=== PATIENT | female | born 1985 | race Two or more races ===

== ENCOUNTER 2020-06-26 19:16 | Emergency (ER) | payer MEDICAID ==
[2020-06-26] MEDS ORDERED: LORazepam 1 MG Tab PO ONE (19:42)
--- NOTE | 2020-06-26 19:53 | EDM.PDOCBH ---
ED HPI GENERAL MEDICAL PROBLEM - General Chief Complaint: Behavioral/Psych Stated Complaint: MENTAL HEALTH EVAL Time Seen by Provider: 06/26/20 19:39 Source of Information: Reports: Patient History Limitations: Reports: No Limitations - History of Present Illness INITIAL COMMENTS - FREE TEXT/NARRATIVE: HISTORY AND PHYSICAL: History of present illness: Patient is a 34-year-old female who presents to the emergency room with [facility] counselors for clearance for detox admission. Patient has a history of polysubstance abuse (marijuana, etoh, herion and meth). States she is volunt arily being admitted to [facility] for treatment. States she last drank alcohol and smoked marijuana last evening. She currently has no current complaints or concerns. Patient denies any fever, chills, headache, change in vision, syncope or near syncope. Denies any chest pain, back pain, shortness of breath or cough. Denies any GI or symptoms. No concern for . Patient has been eating and drinking appropriately. No thoughts of self-harm or harming others. Review of systems: As per history of present illness and below otherwise all systems reviewed and negative. Past medical history: As per history of present illness and as reviewed below otherwise noncontributory. Surgical history: As per history of present illness and as reviewed below otherwise noncont ributory. Social history: See social history for further information Family history: As per history of present illness and as reviewed below otherwise noncontributory. Physical exam: General: Well developed and well nourished. Alert and orientated x 3. Nontoxic in appearance and in no acute distress. Vital signs are stable and have been reviewed by me. Nursing notes were reviewed. HEENT: Atraumatic, normocephalic, pupils equal and reactive bilaterally, negative for conjunctival pallor or scleral icterus, mucous membranes moist, TMs normal bilaterally, throat clear, neck supple, nontender, trachea midline. No drooling or trismus noted. No meningeal signs. No hot potato voice noted. Lungs: Clear to auscultation bilaterally. No wheezes, rales, or rhonchi. Chest nontender. Normal work of breathing, no accessory muscles used. Heart: S1S2, regular rate and rhythm without overt murmur, gallops, or rubs. No JVD. No peripheral edema Abdomen: Soft, nondistended, nontender. Normoactive bowel sounds. Negative for masses or costovertebral tenderness. Skin: Intact, warm, dry. No lesions or rashes noted. Hematologic: No petechiae or purpra. Mucosa appropriate color and normal nail bed color and refill. Extremities: Atraumatic, moves all extremities per self without difficulty or deficits, negative for cords or calf pain. Neurovascular unremarkable. Neuro: Awake, alert, oriented. Cranial nerves II through XII unremarkable. Cerebellum unremarkable. Motor and sensory unremarkable throughout. Exam nonfocal. Psychiatric: Mood and affect are appropriate. Normal thought process. Answering questions appropriately. Notes: *This patient was seen and evaluated during the 2019 SARS-CoV-2 novel coronavirus pandemic period. Community viral transmission is ongoing at time of this encounter and the emergency department is operating under pandemic response procedures. Patient's physical exam is within normal limits. She offers no current complaints or concerns, mildly anxious about her [facility] experience. The [facility] would like basic lab work done at this time. Patient is agreeable. Lab work is essentially unremarkable. Patient is unable to give a urine sample, was asked many times. She states she does not have any urinary symptoms. Vital signs remained stable. She continues to be alert, oriented and unremarkable physical exam. I have talked with the patient about today's findings, in addition to providing specific details for plan of care. Reassessment at the time of disposition demonstrates that the patient is in no acute distress. The patient is stable for discharge, counseling was provided and we discussed in great detail signs and symptoms that would prompt them to return to the Emergency Department. Medication, follow up and supportive care measures were reviewed and discussed. Voices understanding and is agreeable to plan of care. Denies any further questions or concerns at this time. Diagnostics: CBC, CMP, UA Therapeutics: Ativan PO Prescription: None Impression: Encounter for medical screening exam Plan: 1. You were evaluated today on an emergent basis. Your lab work is unremarkable 2. You can alternate Tylenol and ibuprofen as needed for pain and fever management. 3. We encourage you to follow up with your primary care provider and/or recommended specialist in the next few days for re-evaluation and further care/management. 4. If your symptoms should worsen, new symptoms develop or any of the signs and symptoms we discussed should arise please return to the emergency room or call 911 (if needed). Definitive disposition and diagnosis as appropriate pending reevaluation and review of above. - Related Data Allergies Allergy/AdvReac Type Severity Reaction Status Date / Time No Known Allergies Allergy Verified 06/26/20 19:35 Home Meds: Home Meds . [No Known Home Meds] 06/26/20 [History] Past Medical History HEENT History: Reports: None Cardiovascular History: Reports: None Respiratory History: Reports: None Gastrointestinal History: Reports: None Genitourinary History: Reports: None SOCIOLOGY ADJUNCT INSTRUCTOR History: Reports: None Musculoskeletal History: Reports: None Neurological History: Reports: None Psychiatric History: Reports: Depression, PTSD Endocrine/Metabolic History: Reports: None Insulin Pump Model and Java Swing Developer: None Hematologic History: Reports: None Immunologic History: Reports: None Oncologic (Cancer) History: Reports: None Dermatologic History: Reports: None - Infectious Disease History Infectious Disease History: Reports: None - Past Surgical History Female Surgical History: Reports: Breast Reduction Social & Family History - Caffeine Use Caffeine Use: Reports: Coffee, Energy Drinks, Soda, Tea - Recreational Drug Use Recreational Drug Use: Yes Drug Use in Last 12 Months: Yes Recreational Drug Type: Reports: Heroin, Marijuana/Hashish, Methamphetamine ED ROS GENERAL - Review of Systems Review Of Systems: Comprehensive ROS is negative, except as noted in HPI. ED EXAM, BEHAVIORAL HEALTH - Physical Exam Exam: See Below (See dictation) COURSE, BEHAVIORAL HEALTH COMP - Course Vital Signs: Last Vital Signs Temp 97.4 F 06/26/20 19:30 Pulse 96 06/26/20 19:30 Resp 18 06/26/20 19:30 BP 120/62 06/26/20 19:30 Pulse Ox 98 06/26/20 19:30 Orders, Labs, Meds: Active Orders 24 hr Category Date Time Status UA RFX RADHA AND CULT IF INDIC [URIN] Stat Lab 06/26/20 19:42 Ordered Potassium Chloride [Klor-Con M20] Med 06/26/20 20:46 Once 40 meq PO ONETIME ONE Laboratory Tests 06/26/20 06/26/20 Range/Units 19:50 19:50 WBC 9.12 (4.0-11.0) K/uL RBC 4.34 (4.30-5.90) M/uL Hgb 11.0 L (12.0-16.0) g/dL Hct 34.2 L (36.0-46.0) % MCV 78.8 L (80.0-98.0) fL MCH 25.3 L (27.0-32.0) pg MCHC 32.2 (31.0-37.0) g/dL RDW Std Deviation 42.6 (28.0-62.0) fl RDW Coeff of Helen 15 (11.0-15.0) % Plt Count 312 (150-400) K/uL MPV 10.00 (7.40-12.00) fL Neut % (Auto) 65.0 (48.0-80.0) % Lymph % (Auto) 25.4 (16.0-40.0) % [place] % (Auto) 8.3 (0.0-15.0) % Eos % (Auto) 1.1 (0.0-7.0) % Baso % (Auto) 0.2 (0.0-1.5) % Neut # (Auto) 5.9 H (1.4-5.7) K/uL Lymph # (Auto) 2.3 (0.6-2.4) K/uL [place] # (Auto) 0.8 (0.0-0.8) K/uL Eos # (Auto) 0.1 (0.0-0.7) K/uL Baso # (Auto) 0.0 (0.0-0.1) K/uL Nucleated RBC % 0.0 /100WBC Nucleated RBCs # 0 K/uL Sodium 139 (136-145) mmol/L Potassium 3.3 L (3.5-5.1) mmol/L Chloride 102 (98-107) mmol/L Carbon Dioxide 26.0 (21.0-32.0) mmol/L BUN 12 (7.0-18.0) mg/dL Creatinine 0.7 (0.6-1.0) mg/dL Est Cr Clr Drug Dosing TNP Estimated GFR (MDRD) > 60.0 ml/min Glucose 82 (74-106) mg/dL Calcium 8.8 (8.5-10.1) mg/dL Total Bilirubin 0.5 (0.2-1.0) mg/dL AST 16 (15-37) IU/L ALT 24 (14-63) IU/L Alkaline Phosphatase 80 (46-116) U/L Total Protein 8.0 (6.4-8.2) g/dL Albumin 3.8 (3.4-5.0) g/dL Globulin 4.2 H (2.6-4.0) g/dL Albumin/Globulin Ratio 0.9 (0.9-1.6) Medications Discontinued Medications Generic Name Dose Route Start Last Admin Trade Name Freq PRN Reason Stop Dose Admin Lorazepam 1 mg 06/26/20 19:42 06/26/20 19:50 Lorazepam 1 Mg Tab PO 06/26/20 19:43 1 mg ONETIME ONE Administration Departure - Departure Time of Disposition: 20:47 Disposition: Home, Self-Care 01 Clinical Impression: Encounter for medical screening examination - Discharge Information Instructions: Medical Screening Exam Referrals: PCP,None [Primary Care Provider] - Forms: ED Department Discharge Additional Instructions: The following information is given to patients seen in the emergency department who are being discharged to home. This information is to outline your options for follow-up care. We provide all patients seen in our emergency department with a follow-up referral. The need for follow-up, as well as the timing and circumstances, are variable depending upon the specifics of your emergency department visit. If you don't have a primary care physician on staff, we will provide you with a referral. We always advise you to contact your personal physician following an emergency department visit to inform them of the circumstance of the visit and for follow-up with them and/or the need for any referrals to a consulting specialist. The emergency department will also refer you to a specialist when appropriate. This referral assures that you have the opportunity for follow-up care with a specialist. All of these measure are taken in an effort to provide you with optimal care, which includes your follow-up. Under all circumstances we always encourage you to contact your private physician who remains a resource for coordinating your care. When calling for follow-up care, please make the office aware that this follow-up is from your recent emergency room visit. If for any reason you are refused follow-up, please contact the [facility] Emergency Department at and asked to speak to the emergency department charge nurse. [facility] [address] [place] [phone] [facility] [address] [place] [phone] Thank you for choosing the [facility] emergency department in [place] for your medical needs today. It was a pleasure caring for you. Today you were seen in the emergency department for medical screening exam. 1. You were evaluated today on an emergent basis. Your lab work is unremarkable 2. You can alternate Tylenol and ibuprofen as needed for pain and fever managem ent. 3. We encourage you to follow up with your primary care provider and/or recommended specialist in the next few days for re-evaluation and further care/management. 4. If your symptoms should worsen, new symptoms develop or any of the signs and symptoms we discussed should arise please return to the emergency room or call 911 (if needed). Sepsis Event Note (ED) - Evaluation Sepsis Screening Result: No Definite Risk - Focused Exam Vital Signs: Vital Signs Temp Pulse Resp BP Pulse Ox 06/26/20 19:30 97.4 F 96 18 120/62 98 - My Orders Last 24 Hours: My Active Orders 06/26/20 19:42 UA RFX RADHA AND CULT IF INDIC [URIN] Stat 06/26/20 20:46 Potassium Chloride [Klor-Con M20] 40 meq PO ONETIME ONE - Assessment/Plan Last 24 Hours: My Active Orders 06/26/20 19:42 UA RFX RADHA AND CULT IF INDIC [URIN] Stat 06/26/20 20:46 Potassium Chloride [Klor-Con M20] 40 meq PO ONETIME ONE
[2020-06-26 20:21] LABS: BLOOD UREA NITROGEN,BUN 12 mg/dL (7.0-18.0); CHLORIDE,CL 102 mmol/L (98-107); GLUCOSE RANDOM 82 mg/dL (74-106); POTASSIUM,K 3.3 mmol/L (3.5-5.1); SODIUM,NA 139 mmol/L (136-145)
[2020-06-26] MEDS ORDERED: Potassium Chloride 20 MEQ Tab.ER PO ONE (20:46)
== END 2020-06-26 20:57 | disposition home or self-care (01) ==
LOC: MW.ED 19:16
DX: Z00.00 Encounter for general adult medical examination without abnormal findings (principal)
CPT/HCPCS: 36415; 80053; 85025; 99283; A9270

== ENCOUNTER 2021-01-10 17:33 | Emergency (ER) | payer MEDICAID ==
[2021-01-10] MEDS ORDERED: Ondansetron 4 MG Tab.DIS PO ONE (20:28)
--- NOTE | 2021-01-10 20:56 | EDM.PDOC ---
ED HPI GENERAL MEDICAL PROBLEM - General Chief Complaint: Gastrointestinal Problem Stated Complaint: COUGH Time Seen by Provider: 01/10/21 20:19 - History of Present Illness INITIAL COMMENTS - FREE TEXT/NARRATIVE: CHIEF COMPLAINT(S): Sore throat HISTORY OF PRESENT ILLNESS: This is a 35-year-old man without any significant past medical history who comes to the emergency department with a chief complaint of sore throat. The patient states that for approximately 1 day now she has been experiencing a dry itchy throat associated with a runny nose. She states that she has had a bifrontal headache also associated with this. She describes it as throbbing not associated with any blurry vision or loss of vision. She denies any trouble seeing swallowing or walking. She states that she has not had this before but did have one episode of vomiting last night. She denies any symptoms such as chest pain, shortness of breath, abdominal pain. She states that she does have an intermittent cough. She states that she is not vaccinated and may have been exposed to COVID-19. She denies any other symptoms. REVIEW OF SYSTEMS: Constitutional: Denies fever, chills. Eyes: Denies eye pain Ears, Nose, Mouth, & Throat: Positive for itchy, sore throat. Runny nose. Cardiovascular: Denies chest pain Respiratory: Denies shortness of breath Gastrointestinal: Denies Nausea, vomiting, diarrhea, hematochezia. Genitourinary: Denies hematuria Skin:Denies a rash MSK: Denies joint pain Neurological: Positive for bifrontal headache. Denies blurred vision, numbness, tingling, weakness Psychiatric: Denies depression PAST MEDICAL HISTORY: As per history of present illness and as reviewed below otherwise noncontributory. SURGICAL HISTORY: As per history of present illness and as reviewed below otherwise noncontributory. SOCIAL HISTORY: As per history of present illness and as reviewed below otherwise noncontributory. FAMILY HISTORY: As per history of present illness and as reviewed below otherwise noncontributory. EXAMINATION OF ORGAN SYSTEMS/BODY AREAS: Constitutional: Blood pressure is 127/75, heart rate 96, respiratory rate 17 with an oxygen saturation 96% on room air. Temperature 36.2 General: Well-appearing woman who is in no acute distress Psychiatric: Appropriate mood and affect. Eyes: No scleral icterus or conjunctival erythema ENMT: Moist mucous membranes. No pharyngeal erythema no tonsillar exudates or swelling. No drooling, trismus or stridor. Bilateral tympanic membranes without any bulging or erythema. Cardiovascular: Regular, rate, and rhythm. No gallops, murmurs, or rubs. Bilateral upper extremity pulses symmetric and intact. No peripheral edema. No JVD. Respiratory: Lungs clear to auscultation bilaterally. No wheezes, rales, or rhonchi. Gastrointestinal: Soft, non-tender, non-distended. Normoactive bowel sounds Genitourinary: No suprapubic tenderness Musculoskeletal: Normal range of motion. Skin: No lesions or abrasions. Neurological: AOx4. CN grossly intact. Strength 5/5 in bilateral upper and lower extremity. Sensation is intact bilaterally in upper and lower extremity. Gait appears normal. Finger to nose, heel to colón, rapid alternating movements intact. MEDICAL DECISION MAKING AND COURSE IN THE ED WITH INTERPRETATION/REVIEW OF DIAGNOSTIC STUDIES: This is a 35-year-old and without any significant past medical history who comes to the emergency department with runny nose, dry itchy sore throat associate with bifrontal headache. At this time differential includes viral syndrome such as COVID-19 versus allergic rhinitis versus viral pharyngitis. Will obtain a Covid swab. Otherwise we will treat the patient with Zofran for nausea given her vomiting last evening. She states that she is currently experiencing no pain therefore we will hold off on pain medication at this time. Laboratory: Covid is negative. After lab I did discuss with the patient regarding symptomatic treatment at home. She was given strict return precautions. She was amenable discharge and had no further questions. DISPOSITION: The patient was discharged home in stable condition. The patient will follow up with primary care physician in 3 to 5 days CONDITION: Fair PROCEDURES: None FINAL IMPRESSION(S)/DIAGNOSES: 1. Acute viral upper respiratory infection versus allergic rhinitis Seven Hayes M.D. - Related Data Allergies Allergy/AdvReac Type Severity Reaction Status Date / Time No Known Allergies Allergy Verified 01/10/21 18:52 Home Meds: Home Meds Fluticasone Propionate [Flonase] 16 gm .XX BID #1 bottle 01/10/21 [Rx] Past Medical History HEENT History: Reports: None Cardiovascular History: Reports: None Respiratory History: Reports: None Gastrointestinal History: Reports: None Genitourinary History: Reports: None HEALTH CARE RECRUITER History: Reports: None Musculoskeletal History: Reports: None Neurological History: Reports: None Psychiatric History: Reports: Depression, PTSD Endocrine/Metabolic History: Reports: None Insulin Pump Model and Courtesy Van Driver: None Hematologic History: Reports: None Immunologic History: Reports: None Oncologic (Cancer) History: Reports: None Dermatologic History: Reports: None - Infectious Disease History Infectious Disease History: Reports: None - Past Surgical History Female Surgical History: Reports: Breast Reduction Social & Family History - Family History Family Medical History: No Pertinent Family History - Tobacco Use Tobacco Use Status *Q: Current Every Day Tobacco User Years of Tobacco use: 13 Packs/Tins Daily: 0.5 - Caffeine Use Caffeine Use: Reports: Coffee, Soda - Recreational Drug Use Recreational Drug Use: No ED ROS GENERAL - Review of Systems Review Of Systems: See Below ED EXAM, GENERAL - Physical Exam Exam: See Below Course - Vital Signs Last Recorded V/S: Last Vital Signs Temp 36.2 C 01/10/21 18:52 Pulse 96 01/10/21 18:52 Resp 17 01/10/21 18:52 BP 127/75 01/10/21 18:52 Pulse Ox 96 01/10/21 18:52 - Orders/Labs/Meds Labs: Laboratory Tests 01/10/21 Range/Units 18:57 SARS-CoV-2 RNA (SANDY) NEGATIVE (NEGATIVE) Meds: Medications Discontinued Medications Generic Name Dose Route Start Last Admin Trade Name Freq PRN Reason Stop Dose Admin Ondansetron HCl 4 mg 01/10/21 20:28 01/10/21 21:04 Ondansetron 4 Mg Tab.Dis PO 01/10/21 20:29 4 mg ONETIME ONE Administration Departure - Departure Time of Disposition: 20:54 Disposition: Home, Self-Care 01 Condition: Fair Clinical Impression: Vomiting, Rhinitis - Discharge Information *PRESCRIPTION DRUG MONITORING PROGRAM REVIEWED*: No *COPY OF PRESCRIPTION DRUG MONITORING REPORT IN PATIENT KELSEY: No Prescriptions: Fluticasone Propionate [Flonase] 16 gm .XX BID #1 bottle Instructions: Allergic Rhinitis, Adult, [id number], Vomiting, Adult Referrals: PCP,None [Primary Care Provider] - Forms: ED Department Discharge Additional Instructions: You were evaluated today on an emergent basis. At this time your Covid screening was negative. Given your symptoms this could be 1 of 2 things including a viral upper respiratory infection versus allergic rhinitis. I recommend that you use Tylenol and Motrin for pain relief and I recommend that you maintain adequate fluid hydration with Gatorade, Pedialyte and fluids. I recommend soups and liquids for the next couple of days and then slowly add more firm foods to your diet as tolerated. In addition given your burning and itching eyes, runny nose and scratchy throat this could be allergic symptoms. I recommend you use Zyrtec nightly and you use Flonase 2 sprays in the nostrils twice a day. Flonase does not work unless you use it for greater than 7 to 10 days. I recommend you continue to use this even after. I recommend you follow- up with your primary care physician for reevaluation in 3 to 5 days. Please return for any new or worsening symptoms. [facility] - Primary Care [address] [place] [address] [place] [address] The patient is informed of any results of their evaluation and diagnostic workup and all questions are answered. They are given discharge instructions and return precautions. The patient is stable for discharge. The patient states they understand and agree with the plan and that they will return if their symptoms get worse or if they have any new concerns. The following information is given to patients seen in the emergency department who are being discharged to home. This information is to outline your options for follow-up care. We provide all patients seen in our emergency department with a follow-up referral. The need for follow-up, as well as the timing and circumstances, are variable depending upon the specifics of your emergency department visit. If you don't have a primary care physician on staff, we will provide you with a referral. We always advise you to contact your personal physician following an emergency department visit to inform them of the circumstance of the visit and for follow-up with them and/or the need for any referrals to a consulting specialist. The emergency department will also refer you to a specialist when appropriate. This referral assures that you have the opportunity for follow-up care with a specialist. All of these measure are taken in an effort to provide you with optimal care, which includes your follow-up. Under all circumstances we always encourage you to contact your private physician who remains a resource for coordinating your care. When calling for follow-up care, please make the office aware that this follow-up is from your recent emergency room visit. If for any reason you are refused follow-up, please contact the [facility] Emergency Department at and asked to speak to the emergency department charge nurse. Sepsis Event Note (ED) - Evaluation Sepsis Screening Result: No Definite Risk
== END 2021-01-10 21:04 | disposition home or self-care (01) ==
LOC: MW.ED 17:33
DX: J31.0 Chronic rhinitis (principal); R11.10 Vomiting, unspecified; Z72.0 Tobacco use; Z20.822 Contact with and (suspected) exposure to COVID-19
CPT/HCPCS: 87635; 99284; A9270; U0002

== ENCOUNTER 2021-02-09 12:26 | Emergency (ER) | payer MEDICAID ==
--- NOTE | 2021-02-09 12:58 | EDM.PDOC ---
ED HPI GENERAL MEDICAL PROBLEM - General Chief Complaint: Respiratory Problem Stated Complaint: CHEST PAIN,BODY ACHES Time Seen by Provider: 02/09/21 12:28 Source of Information: Reports: Patient History Limitations: Reports: No Limitations - History of Present Illness INITIAL COMMENTS - FREE TEXT/NARRATIVE: Patient is a 35-year-old female who presents today for body aches and throat pain. Patient states that she has pain in her throat and also she swallows. She has no difficulty breathing. She is able to swallow her saliva without issue. She denies any fever chills shortness of breath. She is has diffuse body aches that started yesterday as well. Patient not take any medication for 3 throat pain. Throat Pain Score (Numeric/FACES): 7 - Related Data Allergies Allergy/AdvReac Type Severity Reaction Status Date / Time No Known Allergies Allergy Verified 02/09/21 12:37 Home Meds: Home Meds Amoxicillin 500 mg PO BID 10 Days #20 tab 02/09/21 [Rx] Past Medical History HEENT History: Reports: None Cardiovascular History: Reports: None Respiratory History: Reports: None Gastrointestinal History: Reports: None Genitourinary History: Reports: None COMMUNICATIONS MAINTAINER History: Reports: None Musculoskeletal History: Reports: None Neurological History: Reports: None Psychiatric History: Reports: Depression, PTSD Endocrine/Metabolic History: Reports: None Insulin Pump Model and File System Installer: None Hematologic History: Reports: None Immunologic History: Reports: None Oncologic (Cancer) History: Reports: None Dermatologic History: Reports: None - Infectious Disease History Infectious Disease History: Reports: None - Past Surgical History Female Surgical History: Reports: Breast Reduction Social & Family History - Family History Family Medical History: No Pertinent Family History - Tobacco Use Tobacco Use Status *Q: Current Some Day Tobacco User Years of Tobacco use: 13 Packs/Tins Daily: 1 - Caffeine Use Caffeine Use: Reports: Coffee, Energy Drinks - Recreational Drug Use Recreational Drug Use: No ED ROS GENERAL - Review of Systems Review Of Systems: See Below Constitutional: Reports: No Symptoms HEENT: Reports: Throat Pain Respiratory: Reports: No Symptoms Cardiovascular: Reports: No Symptoms Endocrine: Reports: No Symptoms GI/Abdominal: Reports: No Symptoms : Reports: No Symptoms Musculoskeletal: Reports: No Symptoms Skin: Reports: No Symptoms Neurological: Reports: No Symptoms Psychiatric: Reports: No Symptoms Hematologic/Lymphatic: Reports: No Symptoms Immunologic: Reports: No Symptoms ED EXAM, GENERAL - Physical Exam Exam: See Below Exam Limited By: No Limitations General Appearance: Alert, WD/WN, No Apparent Distress Eye Exam: Bilateral Eye: EOMI Ears: Normal External Exam, Normal TMs Throat/Mouth: Normal Inspection, Normal Oropharynx Head: Atraumatic Neck: Normal Inspection, Supple Respiratory/Chest: No Respiratory Distress, Lungs Clear, Normal Breath Sounds Cardiovascular: Normal Peripheral Pulses, Regular Rate, Rhythm GI/Abdominal: Normal Bowel Sounds, Soft, Non-Tender Extremities: Normal Inspection, Normal Range of Motion Neurological: Alert, Oriented, CN II-XII Intact, Normal Cognition, Normal Gait Psychiatric: Normal Affect Course - Vital Signs Last Recorded V/S: Last Vital Signs Temp 98.2 F 02/09/21 12:39 Pulse 71 02/09/21 13:43 Resp 16 02/09/21 13:43 BP 118/71 02/09/21 13:43 Pulse Ox 98 02/09/21 13:43 - Orders/Labs/Meds Labs: Laboratory Tests 02/09/21 Range/Units 13:13 Group A Strep (PCR) DETECTED H (NOT DETECT) Meds: Medications Discontinued Medications Generic Name Dose Route Start Last Admin Trade Name Aniket PRN Reason Stop Dose Admin Dexamethasone 10 mg 02/09/21 13:31 02/09/21 13:41 Dexamethasone 10 Mg/Ml Sdv IM 02/09/21 13:32 10 mg NOW STA Administration - Re-Assessments/Exams Free Text/Narrative Re-Assessment/Exam: 02/09/21 13:54 Patient strep is positive patient given IM Decadron and will start on amoxicillin. Patient be discharged home. Departure - Departure Time of Disposition: 13:54 Disposition: Home, Self-Care 01 Condition: Good Clinical Impression: Strep pharyngitis - Discharge Information *PRESCRIPTION DRUG MONITORING PROGRAM REVIEWED*: Not Applicable *COPY OF PRESCRIPTION DRUG MONITORING REPORT IN PATIENT KELSEY: Not Applicable Prescriptions: Amoxicillin 500 mg PO BID 10 Days #20 tab Instructions: Pharyngitis, [id number] Referrals: PCP,None [Primary Care Provider] - Forms: ED Department Discharge Additional Instructions: You were seen today for sore throat and you are found to have strep throat. We gave you Decadron with steroids about the pain and the swelling we also sent home with antibiotics should take for the next 10 days to about an infection. If you have any other concerning signs or symptoms please return to the ED. The following information is given to patients seen in the emergency department who are being discharged to home. This information is to outline your options for follow-up care. We provide all patients seen in our emergency department with a follow-up referral. The need for follow-up, as well as the timing and circumstances, are variable depending upon the specifics of your emergency department visit. If you don't have a primary care physician on staff, we will provide you with a referral. We always advise you to contact your personal physician following an emergency department visit to inform them of the circumstance of the visit and for follow-up with them and/or the need for any referrals to a consulting specialist. The emergency department will also refer you to a specialist when appropriate. This referral assures that you have the opportunity for follow-up care with a specialist. All of these measure are taken in an effort to provide you with optimal care, which includes your follow-up. Under all circumstances we always encourage you to contact your private physician who remains a resource for coordinating your care. When calling for follow-up care, please make the office aware that this follow-up is from your recent emergency room visit. If for any reason you are refused follow-up, please contact the [facility] Emergency Department at and asked to speak to the emergency department charge nurse. Please follow up with your primary care physician. If you do not have a primary care physician, see below: [facility] [address] [place] [id number] [facility] [address] [place] [id number] Sepsis Event Note (ED) - Evaluation Sepsis Screening Result: No Definite Risk - Focused Exam Vital Signs: Vital Signs Temp Pulse Resp BP Pulse Ox 02/09/21 13:43 71 16 118/71 98 02/09/21 12:39 98.2 F 99 16 109/69 99 - Assessment/Plan Plan: Patient is a 35-year-old female presents today for body aches and throat pain. Patient on exam is clear lungs and looks well. Has some tenderness in lymphatic area of her neck will obtain a rapid strep test and if positive will treat if negative will discharge home.
[2021-02-09] MEDS ORDERED: Dexamethasone 10 MG/ML SDV IM STA (13:31)
== END 2021-02-09 14:00 | disposition home or self-care (01) ==
LOC: MW.ED 12:26
DX: J02.0 Streptococcal pharyngitis (principal); Z72.0 Tobacco use
CPT/HCPCS: 87651; 96372; 99283; J1100

== ENCOUNTER 2021-07-28 21:01 | Emergency (ER) | payer MEDICAID | END 2021-07-28 22:14 | LOC: MW.ED 21:01 | DX: F15.10 Other stimulant abuse, uncomplicated (principal); F11.20 Opioid dependence, uncomplicated | CPT/HCPCS: 99282; 99283 ==

== ENCOUNTER 2021-09-28 17:28 | Inpatient (IN) | payer MEDICAID ==
[2021-09-28] MEDS ORDERED: Sodium Chloride 0.9% 1,000 ML IV ONE (18:35)
[2021-09-28] MEDS ORDERED: cefTRIAXone 1 GM in Sodium Chloride 0.9% 50 ML IV ONE (18:35)
[2021-09-28 18:41] LABS: CARBON DIOXIDE,CO2 24.2 mmol/L (21.0-32.0); POTASSIUM,K 2.8 mmol/L (3.5-5.1)
[2021-09-28] MEDS ORDERED: Iopamidol 755 MG/ML 500 ML Multipack Bottle IVPUSH ONE (19:14)
[2021-09-28] MEDS ORDERED: Potassium Chloride 20 MEQ Tab.ER PO ONE (19:16)
[2021-09-28] MEDS ORDERED: Ketorolac 30 MG/ML SDV IVPUSH ONE (19:19)
[2021-09-28] MEDS ORDERED: Ondansetron 4 MG/2 ML SDV IVPUSH ONE (19:19)
[2021-09-28] MEDS ORDERED: Morphine 4 MG/ML VIAL IVPUSH ONE (19:19)
[2021-09-28 19:54] LABS: CORONAVIRUS COVID-19 NAA NEGATIVE (NEGATIVE); INFLUENZA A NAA NEGATIVE (NEGATIVE); INFLUENZA B NAA NEGATIVE (NEGATIVE)
[2021-09-28 20:06] LABS: C. TRACHOMATIS BY PCR NOT DETECTED; N. GONORRHOEAE BY PCR NOT DETECTED
[2021-09-28] MEDS ORDERED: metroNIDAZOLE 250 MG Tab PO ONE (20:32)
[2021-09-28] MEDS ORDERED: NS with KCl 40mEq 1,000 ML IV SCH (23:15)
[2021-09-28] MEDS ORDERED: Acetaminophen 325 MG Tab PO PRN (23:23)
[2021-09-28] MEDS ORDERED: Ibuprofen 200 MG Tab PO PRN (23:23)
[2021-09-28] MEDS: Morphine 2 MG/ML SYRINGE IVPUSH PRN (23:39)
[2021-09-29] MEDS ORDERED: Ondansetron 4 MG/2 ML SDV IVPUSH PRN (01:00)
[2021-09-29 06:12] LABS: CARBON DIOXIDE,CO2 25.7 mmol/L (21.0-32.0); POTASSIUM,K 4.3 mmol/L (3.5-5.1)
[2021-09-29] MEDS ORDERED: Sodium Chloride 0.9% 1,000 ML IV ONE ×2 (08:47→16:59)
[2021-09-29] MEDS: metroNIDAZOLE 250 MG Tab PO SCH ×2 (09:13→20:52)
[2021-09-29] MEDS: Sodium Chloride 0.9% 1,000 ML IV SCH ×3 (11:20→21:32)
[2021-09-29] MEDS: oxyCODONE 5 MG Tab PO PRN ×2 (16:38→20:51)
[2021-09-29] MEDS: Morphine 2 MG/ML SYRINGE IVPUSH PRN (17:31)
[2021-09-29] MEDS ORDERED: cefTRIAXone 1 GM in Sodium Chloride 0.9% 50 ML IV SCH (18:00)
[2021-09-30] MEDS: Sodium Chloride 0.9% 1,000 ML IV SCH ×3 (01:58→09:08)
[2021-09-30 05:54] LABS: CARBON DIOXIDE,CO2 24.7 mmol/L (21.0-32.0)
[2021-09-30] MEDS: oxyCODONE 5 MG Tab PO PRN (08:18)
[2021-09-30] MEDS: metroNIDAZOLE 250 MG Tab PO SCH (08:19)
== END 2021-09-30 15:36 | disposition home or self-care (01) | DRG 690 ==
LOC: MW.ED 17:28 → MW.MS 20:35
PROVIDERS: ADMIT Internal Medicine; ATTEND Internal Medicine
DX: N10 Acute pyelonephritis (principal); E87.6 Hypokalemia; F32.A Depression, unspecified; F43.10 Post-traumatic stress disorder, unspecified; F17.210 Nicotine dependence, cigarettes, uncomplicated; A59.01 Trichomonal vulvovaginitis; Z20.822 Contact with and (suspected) exposure to COVID-19
CPT/HCPCS: 0240U; 36415; 74177; 74177-26; 80048; 80053; 81001; 83605; 83690; 83735; 84703; 85025; 87040; 87086; 87088; 87186; 87480; 87491; 87510; 87591; 87660; 93005; 96361; 96365; 96375; 99221; 99231; 99238; 99284; 99285-25; A9270-GY; J0696; J1885; J2270; J2405; J3480; J7030; Q9967

== ENCOUNTER 2023-06-02 10:14 | Emergency (ER) | payer MEDICAID ==
[2023-06-02] MEDS ORDERED: Naloxone 0.4 MG/ML SDV IVPUSH PRN (10:36)
[2023-06-02 11:34] LABS: BASOPHILS ABSOLUTE AUTO 0.02 K/uL (0.00-0.20); BASOPHILS PERCENT AUTO 0.2 % (0.0-1.0); EOSINOPHILS ABSOLUTE AUTO 0.14 K/uL (0.00-0.45); EOSINOPHILS PERCENT AUTO 1.6 % (0.0-6.0); HEMATOCRIT 30.4 % (37.0-47.0); HEMOGLOBIN 9.5 g/dL (12.0-16.0); IMMATURE GRAN ABSOLUTE AUTO 0.02 K/uL (0.00-0.05); IMMATURE GRAN PERCENT AUTO 0.2 % (0.0-0.4); LYMPHOCYTES ABSOLUTE AUTO 1.37 K/uL (1.00-4.80); LYMPHOCYTES PERCENT AUTO 15.5 % (24.0-44.0); MEAN CORPUSCULAR HEMOGLOBIN 23.6 pg (28.0-32.0); MEAN CORPUSCULAR HGB CONC 31.3 g/dL (32.0-36.0); MEAN CORPUSCULAR VOLUME 75.4 fL (83.0-99.0); MEAN PLATELET VOLUME 9.6 fL (9.4-12.3); MONOCYTES ABSOLUTE AUTO 0.65 K/uL (0.00-0.80); MONOCYTES PERCENT AUTO 7.4 % (0.0-8.0); NEUTROPHILS ABSOLUTE AUTO 6.62 K/uL (1.80-7.70); NEUTROPHILS PERCENT AUTO 75.1 % (41.0-71.0); PLATELET COUNT,PLT 327 K/uL (150-400); RED BLOOD CELL COUNT 4.03 M/uL (4.10-5.30); WHITE BLOOD CELL COUNT,WBC 8.82 K/uL (3.9-11.3)
[2023-06-02] MEDS: Ondansetron 4 MG/2 ML SDV IVPUSH STA (11:35)
[2023-06-02] MEDS: Clindamycin Phosphate in D5W 600 MG in Premix Bag 1 BAG IV STA (11:35)
[2023-06-02] MEDS: Sodium Chloride 0.9% 1,000 ML IV STA (11:35)
[2023-06-02] MEDS: Dexamethasone 10 MG/ML SDV IV STA (11:35)
[2023-06-02] MEDS: Morphine 2 MG/ML SYRINGE IVPUSH STA (11:35)
[2023-06-02] MEDS: Sodium Chloride 0.9% 2.5 ML Syringe FLUSH PRN (11:36)
[2023-06-02] MEDS: Sodium Chloride 0.9% 10 ML Syringe FLUSH PRN (11:36)
[2023-06-02 11:56] LABS: A/G RATIO 0.7 (0.9-1.6); ALBUMIN 2.9 g/dL (3.4-5.0); BILIRUBIN TOTAL 1.5 mg/dL (0.2-1.0); CALCIUM 9.4 mg/dL (8.5-10.1); CARBON DIOXIDE,CO2 29.8 mmol/L (21.0-32.0); CREATININE 0.6 mg/dL (0.6-1.0); EST CRCL DRUG DOSING (CG) 121.35 mL/min; POTASSIUM,K 3.9 mmol/L (3.5-5.1)
[2023-06-02] MEDS: Iopamidol 755 MG/ML 500 ML Multipack Bottle IVPUSH STA (12:27)
== END 2023-06-02 13:50 | disposition home or self-care (01) ==
LOC: MW.ED 10:14
DX: L03.213 Periorbital cellulitis (principal); K04.7 Periapical abscess without sinus; Z86.19 Personal history of other infectious and parasitic diseases; Z75.8 Other problems related to medical facilities and other health care
CPT/HCPCS: 36415; 70487; 80053; 83605; 84703; 85025; 87040; 96365; 96375; 99284; J0736; J1100; J2270; J2405; J3490; J7030; Q9967

== ENCOUNTER 2023-06-04 15:55 | Emergency (ER) | payer MEDICAID ==
[2023-06-04 17:02] LABS: BASOPHILS ABSOLUTE AUTO 0.03 K/uL (0.00-0.20); BASOPHILS PERCENT AUTO 0.4 % (0.0-1.0); EOSINOPHILS ABSOLUTE AUTO 0.05 K/uL (0.00-0.45); EOSINOPHILS PERCENT AUTO 0.7 % (0.0-6.0); HEMATOCRIT 30.1 % (37.0-47.0); HEMOGLOBIN 9.3 g/dL (12.0-16.0); IMMATURE GRAN ABSOLUTE AUTO 0.01 K/uL (0.00-0.05); IMMATURE GRAN PERCENT AUTO 0.1 % (0.0-0.4); LYMPHOCYTES ABSOLUTE AUTO 2.65 K/uL (1.00-4.80); LYMPHOCYTES PERCENT AUTO 36.9 % (24.0-44.0); MEAN CORPUSCULAR HEMOGLOBIN 22.9 pg (28.0-32.0); MEAN CORPUSCULAR HGB CONC 30.9 g/dL (32.0-36.0); MEAN CORPUSCULAR VOLUME 74.1 fL (83.0-99.0); MEAN PLATELET VOLUME 9.7 fL (9.4-12.3); MONOCYTES ABSOLUTE AUTO 0.57 K/uL (0.00-0.80); MONOCYTES PERCENT AUTO 7.9 % (0.0-8.0); NEUTROPHILS ABSOLUTE AUTO 3.88 K/uL (1.80-7.70); PLATELET COUNT,PLT 372 K/uL (150-400); RED BLOOD CELL COUNT 4.06 M/uL (4.10-5.30); WHITE BLOOD CELL COUNT,WBC 7.19 K/uL (3.9-11.3)
[2023-06-04] MEDS: Piperacillin/Tazobactam 4.5 GM in Sodium Chloride 0.9% 100 ML IV ONE (17:31)
[2023-06-04 17:32] LABS: A/G RATIO 0.7 (0.9-1.6); ALBUMIN 3.2 g/dL (3.4-5.0); BILIRUBIN TOTAL 0.7 mg/dL (0.2-1.0); CALCIUM 9.3 mg/dL (8.5-10.1); CARBON DIOXIDE,CO2 26.5 mmol/L (21.0-32.0); CREATININE 0.8 mg/dL (0.6-1.0); EST CRCL DRUG DOSING (CG) 83.95 mL/min; PROTEIN TOTAL,TP 7.5 g/dL (6.4-8.2)
[2023-06-04 17:37] LABS: LACTIC ACID 1.1 mmol/L (0.4-2.0)
[2023-06-04] MEDS: Iopamidol 755 MG/ML 500 ML Multipack Bottle IVPUSH STA (17:45)
== END 2023-06-04 20:09 ==
LOC: MW.ED 15:55
DX: R22.0 Localized swelling, mass and lump, head (principal); F17.210 Nicotine dependence, cigarettes, uncomplicated; Z75.8 Other problems related to medical facilities and other health care
CPT/HCPCS: 36415; 70487; 80053; 83605; 85025; 87040; 96365; 99285; J2543; J3490; Q9967